=== PATIENT | male | born 1970 | race Caucasian/White ===

== ENCOUNTER 2021-04-28 13:57 | Outpatient (RCR) | payer OTHER, SELFPAY ==
--- NOTE | 2021-04-28 15:03 | OTOPEVAL ---
Thank you for referring Tanvir Burr to [facility].? The patient is scheduled to be seen for therapy? ____x/week for ___ weeks. Please review, sign, date and return this plan of care BEN. I agree with and certify that the following plan of care is medically necessary. Referring Physician Date Admitting Provider: Attending Provider: Car Moyer, Referring Provider: *OT Outpatient Evaluation Start: 04/28/21 14:04 Freq: Status: Active Protocol: Document 04/28/21 14:05 HENNY (Rec: 04/28/21 15:02 [facility] [id number]) Therapy Assessment Status Assessment Status Assessment Status Evaluation Evaluation Information Problem Diagnosis decreased ROM of R elbow Onset May 2020 Cause closed fracture of head of radius Subjective Information Patient reports that he had Query Text:As Reported By Patient/ surgery on his R elbow on . Patient injured his R elbow in May of 2020 when he fell at work and landed on his R elbow. Patient was off for 2 weeks after the surgery and is currently back to work on light duty. Patient reports that overall his R elbow is feeling well but he noticed it when he goes to reach as well as notices pain in the R shoulder and wrist. Patient's job requires occasional heavy lifting, pushing, pulling and reaching. Reaching up to his face is very difficult and lifting things. Patient is currently on 1# lifting restriction. Patient returns to the doctor at the beginning of May. 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
--- NOTE | 2021-04-28 17:51 | OTOPEVAL ---
Thank you for referring Tanvir Burr to [facility].? The patient is scheduled to be seen for therapy? ____x/week for ___ weeks. Please review, sign, date and return this plan of care BEN. I agree with and certify that the following plan of care is medically necessary. Referring Physician Date Admitting Provider: Attending Provider: Car Moyer, Referring Provider: *OT Outpatient Evaluation Start: 04/28/21 14:04 Freq: Status: Active Protocol: Document 04/28/21 14:05 HENNY (Rec: 04/28/21 15:02 [facility] [id number]) Therapy Assessment Status Assessment Status Assessment Status Evaluation Evaluation Information Problem Diagnosis decreased ROM of R elbow Onset May 2020 Cause closed fracture of head of radius Subjective Information Patient reports that he had Query Text:As Reported By Patient/ surgery on his R elbow on . Patient injured his R elbow in May of 2020 when he fell at work and landed on his R elbow. Patient was off for 2 weeks after the surgery and is currently back to work on light duty. Patient reports that overall his R elbow is feeling well but he noticed it when he goes to reach as well as notices pain in the R shoulder and wrist. Patient's job requires occasional heavy lifting, pushing, pulling and reaching. Reaching up to his face is very difficult and lifting things. Patient is currently on 1# lifting restriction. Patient returns to the doctor at the beginning of May. 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
--- NOTE | 2021-05-12 15:53 | OTOPEVAL ---
Thank you for referring Tanvir Burr to [facility].? The patient is scheduled to be seen for therapy? ____x/week for ___ weeks. Please review, sign, date and return this plan of care BEN. I agree with and certify that the following plan of care is medically necessary. Referring Physician Date Admitting Provider: Attending Provider: Car Moyer, Referring Provider: *OT Outpatient Evaluation Start: 04/28/21 14:04 Freq: Status: Active Protocol: Document 05/12/21 14:30 [facility] (Rec: 05/12/21 15:53 [facility] [id number]) Therapy Assessment Status Assessment Status Assessment Status Progress Evaluation Information Problem Subjective Information Patient reports no new Query Text:As Reported By Patient/ concerns. He states that Family overall his R elbow is doing well. He does mention occasional pain if he tries to bend it to far and occasional pain the R shoulder and wrist . Pain Assessment Timing of Pain Assessment Timing of Pain Assessment Pre-Treatment Self Report Self Report Pain Level 0 Pain Score Pain Score 0: Self Report Upper Extremity Range of Motion Elbow/Forearm Range of Motion Right Elbow Flexion - Active 135 Elbow Extension - Active -5 General Exercise General Exercises Side Right Exercise Description PROM for R shoulder flexion, Query Text:Record Sets, Reps, abduction, horizontal Resistance, and Position abduction, elbow flexion and extension, wrist flexion and extension with elbow extended and with elbow in flexion x 10 min AROM R tendon glides 1x10 AROM for R elbow flexion/ extension, supination/ pronation and wrist extension/ flexion 1 x 10 R elbow flexion/extension 2x20 with 1 lb weight R forearm pronation/supination 2x20 with 1 lb weight R wrist flexion/extension 2x20 with 1 lb weight Manual Therapy Manual Therapy Side Right Patient Position Sitting Treatment Comments STM/IASTM to volar elbow/ Query Text:Include Technique and forearm x 10 min Result of Technique Modalities Hot Pack/Cold Pack Right Elbow Type Hot Pack
--- NOTE | 2021-05-27 15:50 | OTOPEVAL ---
Thank you for referring Tanvir Burr to [facility].? The patient is scheduled to be seen for therapy? ____x/week for ___ weeks. Please review, sign, date and return this plan of care BEN. I agree with and certify that the following plan of care is medically necessary. Referring Physician Date Admitting Provider: Attending Provider: Car Moyer, Referring Provider: *OT Outpatient Evaluation Start: 04/28/21 14:04 Freq: Status: Active Protocol: Document 05/27/21 14:42 [facility] (Rec: 05/27/21 15:49 [id number]) Therapy Assessment Status Assessment Status Assessment Status Re-evaluation Evaluation Information Problem Subjective Information Patient reports that overall Query Text:As Reported By Patient/ things are going well. He Family mentions that occasionally his R shoulder bothers him as well as tenderness at the location of where his stitches were. Patient reports that he continues to be on a 1# lifting restriction and returns to the doctor at the beginning of June. Per doctor's order patient is able to begin light progressive strengthening at 12 weeks post -op which is May 28, 2021 . Pain Assessment Timing of Pain Assessment Timing of Pain Assessment Re-assessment Self Report Self Report Pain Level 0 Pain Score Pain Score 0: Self Report Upper Extremity Range of Motion Elbow/Forearm Range of Motion Right Elbow Flexion - Active 135 Elbow Extension - Active -5 General Exercise General Exercises Side Right Exercise Description PROM for R shoulder flexion, Query Text:Record Sets, Reps, abduction, horizontal Resistance, and Position abduction, elbow flexion and extension, wrist flexion and extension with elbow extended and with elbow in flexion x 15 min Arm pulleys x 5 min in order to facilitate R shoulder flexion and extension extension AROM R tendon glides 1x10 AROM for R elbow flexion/ extension, supination/ pronation and wrist extension/ flexion 1 x 1
== END 2021-05-27 18:00 | disposition still patient (30) ==
LOC: CHSOT 13:57
PROVIDERS: Visit Provider Orthopaedic Surgery Hand Surgery
DX: S52.121D Displaced fracture of head of right radius, subsequent encounter for closed fracture with routine healing (principal)
CPT/HCPCS: 97110; 97140; 97165

== ENCOUNTER 2021-07-28 16:26 | Outpatient (RCR) | payer OTHER, SELFPAY ==
--- NOTE | 2021-07-28 17:19 | OTOPEVAL ---
Thank you for referring Tanvir Burr to [facility].? The patient is scheduled to be seen for therapy? ____x/week for ___ weeks. Please review, sign, date and return this plan of care BEN. I agree with and certify that the following plan of care is medically necessary. Referring Physician Date Admitting Provider: Attending Provider: Car Moyer, Referring Provider: *OT Outpatient Evaluation Start: 07/28/21 15:58 Freq: Status: Active Protocol: Document 07/28/21 15:58 [facility] [place] [facility] (Rec: 07/28/21 17:19 [facility] [id number]) Therapy Assessment Status Assessment Status Assessment Status Discharge Evaluation Information Problem Subjective Information Patient reports that he is Query Text:As Reported By Patient/ unsure of what happened Family however patient was not approved for additional visits so has not been seen since . Patient was recently cleared by the doctor and back to full duty at work. Patient states that some of the things he does he can feel it but overall not bad. Patient is doing well with completing day to day activities. No new concerns. Patient reports that throwing with his R hand is very awkward. Pain Assessment Timing of Pain Assessment Timing of Pain Assessment Re-assessment Self Report Self Report Pain Level 0 Pain Score Pain Score 0: Self Report Upper Extremity Range of Motion General Upper Extremity Range of Motion Reason Not Measured WNL/Left,WNL/Right Elbow/Forearm Range of Motion Right Elbow Flexion - Active 140 Elbow Extension - Active -10 Elbow/Forearm Range of Motion Comments Supination/pronation is WNLL Upper Extremity Muscle Strength Testing General Upper Extremity Strength Reason Not Measured WNL/Left,WNL/Right Gross Upper Extremity Strength Comments 5/5 Hand Speech Pathologist Assistant/Pinch Strength Assessment Hand Left Speech Pathologist Assistant Strength (lbs) 118 Right Speech Pathologist Assistant Strength (lbs) 97 General Exercise General Exercises Side Right Exercise Description green theratube resisting D-2 Query Text:Record Sets, Reps, flexion, external rotation in Resistance, and Position neutral and external rotation in 90 degrees, 20 reps x 1 set each Rehab Teaching Rehab Teaching Teaching Topic Rehab Teaching Readiness to Learn
== END 2021-07-28 17:26 | disposition home or self-care (01) ==
LOC: CHSOT 16:26
PROVIDERS: Visit Provider Orthopaedic Surgery Hand Surgery
DX: S52.121D Displaced fracture of head of right radius, subsequent encounter for closed fracture with routine healing (principal); M25.521 Pain in right elbow
CPT/HCPCS: 97110

== ENCOUNTER 2023-06-11 19:52 | Outpatient (CLI) | payer OTHER, SELFPAY ==
--- NOTE | 2023-06-30 17:56 | WPDSLEEPSTUD ---
Sleep Study Date of Study: 06/11/23 Ordering Provider: Boogie Lilly DO Interpreting Physician: Hope Villagomez DO Sleep Study Type: Split Polysomnogram Height: 1.75 m Weight: 102.058 kg Body Mass Index: 33.2 Neck Circumference (inches): 18 [place]: 3 Reason for Sleep Study 11/11/2008- PSG showed overall AHI of 26.9 with desaturation down to 89% 12/02/2008: PAP Titration showed optimal pressure of CPAP 8 cm H2O The patient is using a CPAP machine that is 10+ years old. Daytime hypersomnia despite using CPAP. Sleep History The patient is a 52-year-old male with anxiety, depression, GERD, hyperlipidemia, obesity and previously diagnosed sleep apnea that had a sleep study ordered by his primary care physician to optimize his CPAP therapy. The patient rarely awakens from sleep short of breath. He denies awakening at night with heartburn, belching or cough. He frequently snores and is frequently loud enough that others complain. He rarely has trouble sleeping when he has a cold. He rarely wakes up gasping for air throughout the night. He rarely has breathing problems at night observed by himself or others. He occasionally sweats excessively at night. He rarely has heart palpitations or irregular heartbeats during the night. He occasionally falls asleep during the day but never while driving. He denies sleep paralysis and cataplexy. He rarely has trouble at school or work due to sleepiness. He frequently experiences vivid dreamlike scenes upon awakening or falling asleep. He rarely feels afraid of going to sleep. He denies having nightmares. He frequently remembers his dreams. He constantly has thoughts racing through his mind. He frequently feels sad, depressed and anxious. He frequently has muscular tension. He rarely notices parts of his body jerk. He occasionally has crawling and aching feelings in his legs and occasionally has leg pain during the night. He denies grinding his teeth during sleep and denies awakening with morning jaw pain. He is frequently bothered by pain during the day and occasionally awakened by pain during the night. He constantly wakes up feeling stiff in the morning. He frequently wakes up with sore or achy muscles. He frequently wakes up with pain in the neck, spine and other joints. He goes to bed at 9:00 p.m. on weekdays and between 10:00 p.m. to midnight on the weekends. It takes him about 20 minutes to fall asleep. He wakes sometimes 9 are sometimes several times per night for unknown reasons but is able to fall back asleep within 5 minutes. He wakes up at 4:50 a.m. on weekdays between 9-10 a.m. on the weekends. He typically gets 7-1/2 hours of sleep per day. He does not stay in bed after waking up in the morning on weekdays. He currently lives with his . He denies consuming any caffeinated beverages within 2 hours of bedtime. He denies engaging in physical exercise before bedtime. He will watch television before falling asleep. He denies taking naps in the afternoon or the evening. He consumes 2 caffeinated beverages per day. He denies tobacco, alcohol and recreational drug use. [facility] Social History Social History Smoking status: Never smoker Tobacco type: smokeless tobacco Smokeless tobacco user: chewing tobacco Additional smoking assessment comments: Chew 15 years Alcohol intake: current Alcohol use details: social Substance use: never Substance use type: does not use Do You Feel Safe in your Home?: No Lack of Transportation: No Lack of Food: Never True Current Housing: I Have Housing Concerned About Future Housing: No Difficulty Paying Gas/Electric Bills: No Difficulty Paying for Meds: No Currently Unemployed: No Education: High School Diploma/GED Difficulty w/ Childcare or Family Care: No Spiritual care concerns: No Medications Home Medications Medication Instruction
[2023-06-30 18:05] VITALS: BMI 33.2
== END 2023-06-12 06:34 | disposition home or self-care (01) ==
LOC: CHSCSM 19:53
PROVIDERS: PCP Family Medicine; Visit Provider Family Medicine
DX: G47.33 Obstructive sleep apnea (adult) (pediatric) (principal)
CPT/HCPCS: 95811

== ENCOUNTER 2023-07-02 00:26 | Day surgery (SDC) | payer OTHER, SELFPAY ==
[2023-06-25 11:00] VITALS: BMI 32.5
--- NOTE | 2023-06-30 10:05 | SUR.PREOP ---
Patient called regarding upcoming procedure. Voicemail left regarding appointment times.
[2023-07-02 07:42] VITALS: BP 132/89; PULSE 80; RESP 16; TEMP 35.9; O2SAT 100; BMI 32.3
[2023-07-02] MEDS: LACTATED RINGERS 1,000 ML 150 ML IV CONT (07:58)
--- NOTE | 2023-07-02 08:27 | WPDANESEPPF ---
Anes - Initial Pre Proc Eval Procedure: Operation Date: 07/02/23 09:00 Proposed Procedures p Screening Colonoscopy - Trevor Kothari MD Date/Time: 07/02/23 08:27 Surgeon: Trevor Kothari MD Pre Op Diagnosis: neoplasm screening Patient Data Age: 52 Gender: M Height: 1.75 m Weight: 99.3 kg Last Vital Signs Temp 96.6 F L 07/02/23 07:42 Pulse 80 07/02/23 07:42 Resp 16 07/02/23 07:42 BP 132/89 07/02/23 07:42 Pulse Ox 100 07/02/23 07:42 O2 Del Method Room Air 07/02/23 07:42 Allergies Allergy/AdvReac Type Severity Reaction Status Date / Time No Known Allergies Allergy Verified 07/02/23 07:47 Home Medications Medication Instructions Recorded Confirmed Type atorvastatin 20 mg tablet 20 mg PO DAILY #90 tabs 05/11/23 07/02/23 Rx venlafaxine 75 mg capsule,extended 75 mg PO DAILY 05/11/23 07/02/23 History release 24 hr bupropion HCl 300 mg 24 hr tablet, 300 mg PO QAM 06/25/23 07/02/23 History extended release glucosamine-chondroitin 250 mg-200 2 tablet PO TID 06/25/23 07/02/23 History mg tablet (Osteo Bi-Flex) omeprazole 20 mg capsule,delayed 20 mg PO DAILY 06/25/23 07/02/23 History release CPAP #1 ea 07/01/23 07/02/23 Rx Patient hx anesthesia problems: none Family hx anesthesia problems: none Results Review: All pre-operative results and documents have been reviewed as part of the pre-operative evaluation. [facility] Social History Social History Smoking status: Never smoker Tobacco type: smokeless tobacco Smokeless tobacco user: chewing tobacco Additional smoking assessment comments: Chew 15 years Alcohol intake: current Alcohol use details: social Substance use: never Substance use type: does not use Do You Feel Safe in your Home?: No Lack of Transportation: No Lack of Food: Never True Current Housing: I Have Housing Concerned About Future Housing: No Difficulty Paying Gas/Electric Bills: No Difficulty Paying for Meds: No Currently Unemployed: No Education: High School Diploma/GED Difficulty w/ Childcare or Family Care: No Spiritual care concerns: No Anes - Eval Final PreProcedure Day of Procedure 07/02/23 08:27 Patient weight: obese Heart: regular rate and rhythm Lungs: clear to auscultation Airway: Mallampati scale class II Neurological: alert and oriented Last oral intake: >/= 8 hours ASA classification: III Emergent: no Anesthetic plan: proceed Anesthesia type and monitoring: general GIVS and standard monitoring Results Review: All pre-operative results and documents have been reviewed as part of the pre-operative evaluation. Informed Consent: The patient's anesthetic plan and its attendant risks and benefits were discussed with the patient/family/POA. Questions were solicited and answers provided to the satisfaction of the patient/family/POA.
--- NOTE | 2023-07-02 08:33 | PM.HPGS ---
History of Present Illness History of Present Illness Consent: Risks, benefits, and alternatives have been discussed and questions answered. Patient agrees to proceed with procedure. Chief complaint: neoplasm screening Narrative: Tanvir Burr is a 52 year old male here for screening colonoscopy, had one about 20 years ago Review of Systems Review of Systems: All systems reviewed & are unremarkable except as noted in HPI and below PMFSH Past Medical History Medical History (Updated 07/02/23 @ 08:33 by Trevor Kothari MD) Colon cancer screening Social History Social History Smoking status: Never smoker Tobacco type: smokeless tobacco Smokeless tobacco user: chewing tobacco Additional smoking assessment comments: Chew 15 years Alcohol intake: current Alcohol use details: social Substance use: never Substance use type: does not use Do You Feel Safe in your Home?: No Lack of Transportation: No Lack of Food: Never True Current Housing: I Have Housing Concerned About Future Housing: No Difficulty Paying Gas/Electric Bills: No Difficulty Paying for Meds: No Currently Unemployed: No Education: High School Diploma/GED Difficulty w/ Childcare or Family Care: No Spiritual care concerns: No Meds Home Medications and Allergies Home Medications Medication Instructions Recorded Confirmed Type atorvastatin 20 mg tablet 20 mg PO DAILY #90 tabs 05/11/23 07/02/23 Rx venlafaxine 75 mg capsule,extended 75 mg PO DAILY 05/11/23 07/02/23 History release 24 hr bupropion HCl 300 mg 24 hr tablet, 300 mg PO QAM 06/25/23 07/02/23 History extended release glucosamine-chondroitin 250 mg-200 2 tablet PO TID 06/25/23 07/02/23 History mg tablet (Osteo Bi-Flex) omeprazole 20 mg capsule,delayed 20 mg PO DAILY 06/25/23 07/02/23 History release CPAP #1 ea 07/01/23 07/02/23 Rx Allergies Allergy/AdvReac Type Severity Reaction Status Date / Time No Known Allergies Allergy Verified 07/02/23 07:47 Vital Signs Vital Signs - 24 hr 07/02/23 07:42 Temperature 96.6 F L Pulse Rate 80 Respiratory Rate 16 Blood Pressure 132/89 Pulse Oximetry 100 Oxygen Delivery Room Air Exam Const: General: comfortable and no acute distress HENMT: Face/Nose/Sinus: Normal nares present Eyes: General: appearance normal, both eyes and all related structures Neck: Neck: no JVD Resp: Auscultation: clear to auscultation bilaterally Cardio: Rate: regular rate Rhythm: regular rhythm GI: Inspection: non-distended GI Palp: Yes Soft to palpation Skin: General skin exam: normal color Neuro: General: gait normal Speech: normal speech Extrem: General: normal to inspection Psych: Mental Status: mental status grossly normal Assessment and Plan Assessment and plan (1) Colon cancer screening: Code(s): Z12.11 - Encounter for screening for malignant neoplasm of colon Status: Acute Assessment and Plan: colonoscopy
[2023-07-02 08:59] VITALS: BP 119/72; PULSE 77; RESP 21; O2SAT 94
[2023-07-02 09:09] VITALS: BP 122/73; PULSE 69; RESP 20; O2SAT 96
[2023-07-02 09:19] VITALS: BP 126/85; PULSE 68; RESP 23; O2SAT 97
== END 2023-07-02 09:23 | disposition home or self-care (01) ==
PROVIDERS: PCP Family Medicine; Visit Provider Internal Medicine Gastroenterology
PROC: 0DJD8ZZ Inspection of Lower Intestinal Tract, Via Natural or Artificial Opening Endoscopic (ICD-10-PCS; CPT 45378; principal; 2023-07-02 09:00)
DX: Z12.11 Encounter for screening for malignant neoplasm of colon (principal); K57.30 Diverticulosis of large intestine without perforation or abscess without bleeding; F17.220 Nicotine dependence, chewing tobacco, uncomplicated; E66.9 Obesity, unspecified; Z68.32 Body mass index [BMI] 32.0-32.9, adult
CPT/HCPCS: 45378; J2704; J7120

== ENCOUNTER 2024-03-02 01:10 | Day surgery (SDC) | payer OTHER, SELFPAY ==
[2024-02-22 12:05] VITALS: BMI 34.0
--- NOTE | 2024-03-02 10:13 | PM.IMHP ---
H&P: HPI History of Present Illness Date/Time: 03/02/24 10:13 Chief Complaint: Dysphagia Narrative: this patient has been complaining of dysphagia to solids and liquids occasionally for several years. He denies heartburn, vomiting, regurgitation or early satiety. He states that he has difficulty swallowing solids and liquids is indistinct and occurs approximately once a week. There is no unintended weight loss. Review of Systems Review of Systems: All systems reviewed & are unremarkable except as noted in HPI and below PMFSH Past Medical History Medical History Colon cancer screening Social History Social History Smoking status: Current every day smoker Tobacco type: smokeless tobacco Smokeless tobacco user: chewing tobacco Additional smoking assessment comments: Chew 15 years Alcohol intake: current Drinks per week: 3 Alcohol use details: social Substance use: never Substance use type: does not use Do You Feel Safe in your Home?: No Lack of Transportation: No Lack of Food: Never True Current Housing: I Have Housing Concerned About Future Housing: No Difficulty Paying Gas/Electric Bills: No Difficulty Paying for Meds: No Currently Unemployed: No Education: High School Diploma/GED Difficulty w/ Childcare or Family Care: No Living arrangements: with family Spiritual care concerns: No Meds Home Medications and Allergies Home Medications Medication Instructions Recorded Confirmed Type bupropion HCl 300 mg 24 hr tablet, 300 mg PO QAM 06/25/23 03/02/24 History extended release omeprazole 20 mg capsule,delayed 20 mg PO DAILY 06/25/23 03/02/24 History release CPAP pressure change #1 ea 07/26/23 02/22/24 Rx atorvastatin 20 mg tablet 20 mg PO DAILY #90 tabs 11/01/23 03/02/24 Rx sertraline 100 mg tablet 100 mg PO DAILY 02/22/24 03/02/24 History Allergies Allergy/AdvReac Type Severity Reaction Status Date / Time No Known Allergies Allergy Verified 03/02/24 10:13 Exam Const: General: cooperative and healthy appearing Resp: Effort & Inspection: normal respiratory effort and able to speak in complete sentences Auscultation: clear to auscultation bilaterally Cardio: Rate: regular rate Rhythm: regular rhythm GI: Inspection: normal to inspection GI Palp: No No hepatosplenomegaly present Auscultation: normal bowel sounds Rectal Exam: deferred Skin: General skin exam: normal color Psych: Appearance: grossly normal Mental Status: mental status grossly normal Assessment and Plan Assessment and plan (1) Dysphagia: Code(s): R13.10 - Dysphagia, unspecified Status: Acute Assessment and Plan: The patient's differential diagnosis includes eosinophilic esophagitis or Schatzki's ring. Will perform EGD and esophageal biopsies and possible dilatation if a ring is evidenced.
[2024-03-02 10:14] VITALS: BP 130/86; PULSE 67; RESP 18; TEMP 36.1; O2SAT 97; BMI 34.5
[2024-03-02] MEDS: LACTATED RINGERS 1,000 ML 150 ML IV CONT (10:21)
--- NOTE | 2024-03-02 10:21 | WPDANESEPPF ---
Anes - Initial Pre Proc Eval Procedure: Operation Date: 03/02/24 10:30 Proposed Procedures p Esophagogastroduodenoscopy - Cornel Lindo MD Date/Time: 03/02/24 10:21 Surgeon: Cornel Lindo MD Pre Op Diagnosis: Dysphagia, foreign body sensation in throat Patient Data Age: 53 Gender: M Height: 1.75 m Weight: 106.1 kg Last Vital Signs Temp 97 F L 03/02/24 10:14 Pulse 67 03/02/24 10:14 Resp 18 03/02/24 10:14 BP 130/86 03/02/24 10:14 Pulse Ox 97 03/02/24 10:14 O2 Del Method Room Air 03/02/24 10:14 Allergies Allergy/AdvReac Type Severity Reaction Status Date / Time No Known Allergies Allergy Verified 03/02/24 10:13 Home Medications Medication Instructions Recorded Confirmed Type bupropion HCl 300 mg 24 hr tablet, 300 mg PO QAM 06/25/23 03/02/24 History extended release omeprazole 20 mg capsule,delayed 20 mg PO DAILY 06/25/23 03/02/24 History release CPAP pressure change #1 ea 07/26/23 02/22/24 Rx atorvastatin 20 mg tablet 20 mg PO DAILY #90 tabs 11/01/23 03/02/24 Rx sertraline 100 mg tablet 100 mg PO DAILY 02/22/24 03/02/24 History Patient hx anesthesia problems: none Family hx anesthesia problems: none Results Review: All pre-operative results and documents have been reviewed as part of the pre-operative evaluation. [facility] Past Medical History Medical History Colon cancer screening Social History Social History Smoking status: Current every day smoker Tobacco type: smokeless tobacco Smokeless tobacco user: chewing tobacco Additional smoking assessment comments: Chew 15 years Alcohol intake: current Drinks per week: 3 Alcohol use details: social Substance use: never Substance use type: does not use Do You Feel Safe in your Home?: No Lack of Transportation: No Lack of Food: Never True Current Housing: I Have Housing Concerned About Future Housing: No Difficulty Paying Gas/Electric Bills: No Difficulty Paying for Meds: No Currently Unemployed: No Education: High School Diploma/GED Difficulty w/ Childcare or Family Care: No Living arrangements: with family Spiritual care concerns: No Anes - Eval Final PreProcedure Day of Procedure 03/02/24 10:21 Patient weight: obese Heart: regular rate and rhythm Lungs: clear to auscultation Airway: Mallampati scale Neurological: alert and oriented Last oral intake: >/= 8 hours ASA classification: III Emergent: no Anesthetic plan: proceed Anesthesia type and monitoring: general GIVS and standard monitoring Results Review: All pre-operative results and documents have been reviewed as part of the pre-operative evaluation. Hyperlipidemia, BETTY on CPAP setting 9. Pt has dysphagia. Informed Consent: The patient's anesthetic plan and its attendant risks and benefits were discussed with the patient/family/POA. Questions were solicited and answers provided to the satisfaction of the patient/family/POA.
[2024-03-02 10:42] VITALS: BP 104/68; PULSE 69; RESP 24; O2SAT 95
[2024-03-02 10:52] VITALS: BP 109/67; PULSE 68; RESP 26; O2SAT 95
[2024-03-02 11:02] VITALS: BP 116/78; PULSE 65; RESP 20; O2SAT 99
== END 2024-03-02 11:09 | disposition home or self-care (01) ==
PROVIDERS: PCP Family Medicine; Visit Provider Internal Medicine Gastroenterology
PROC: 0DJ08ZZ Inspection of Upper Intestinal Tract, Via Natural or Artificial Opening Endoscopic (ICD-10-PCS; CPT 43235; principal; 2024-03-02 10:30)
DX: K22.2 Esophageal obstruction (principal); K44.9 Diaphragmatic hernia without obstruction or gangrene; F17.220 Nicotine dependence, chewing tobacco, uncomplicated; E66.9 Obesity, unspecified; Z68.34 Body mass index [BMI] 34.0-34.9, adult
CPT/HCPCS: 43450; 43235; J2003; J2704; J7120

== ENCOUNTER 2024-03-13 15:29 | Outpatient (RCR) | payer OTHER, SELFPAY ==
--- NOTE | 2024-03-13 16:16 | PTOPEVAL1 ---
Assessment and note entered by Tien Guillen Evaluation Information Assessment Status Evaluation ICD-10 Condition Codes (PT) Pain in low back M54.50 Onset 03/02/24 Subjective Information Pt. reports that he has had years of back pain. He states that he has started noticing pain with getting out of bed or getting out of his car. he states that he cannot bend for long periods with pain. Pt. reports that he was told to not bend backwards when stretching. He states that he has no trouble with sleeping at night. 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 He states that he notices little pain with walking and states that lifting and bending forward increases his pain. He reports that his goal is to reduce his low back pain. Reported Pain Level Pain Score 0: Self Report Assessment PT Clinical Summary Pt. is a 53 year old male who enters the clinic with low back pain. He presents with impaired posture, impaired flexibility, impaired strength and pain on this date. Continued skilled PT is indicated in order to improve these areas to allow the pt. to be able to complete all IADL's with improved comfort and efficiency. Plan of Care Interventions Electrical Stimulation,Hot Pack/Cold Pack,Manual Therapy,Mechanical Traction,Neuro Re-education, Patient/Caregiver Educati,Therapeutic Activities, Therapeutic Exercise PT Services Indicated Yes Treatment Frequency and 2x/week x 8 visits Duration These treatments will address the objective and functional deficits as defined above. The patient will be advanced safely and appropriately in order for the patient to progress towards his/her prior level of function. Additional exercises will be introduced and as well as a comprehensive home exercise program upon discharge, if needed, ?to ensure carryover of functional gains achieved in the clinic. This treatment plan has been reviewed and agreement upon by the patient.
--- NOTE | 2024-03-13 16:19 | OPREHPOC ---
Outpatient Therapy Plan of Care This is a Multidisciplinary Plan of Care that may contain components documented by all disciplines (PT, OT, and ST.) PT Problem 1 PT Problem #1 Knowledge Deficit PT Goal 1 Goal / Goal Update Pt. will be independent with a HEP addressing trunk mobility and core strength. Target Visit 2 PT Problem 2 PT Problem #2 Pain PT Goal 1 Goal / Goal Update Pt. will reduce pain level to 2/10 at worst with long periods of standing. Target Visit 10 PT Problem 3 PT Problem #3 Impaired Strength PT Goal 1 Goal / Goal Update Pt. will present with good abdominal strength with Lupillo method at the lower and oblique abdominals Pt. will present with 5/5 lower abdominal strength . Target Visit 8 PT Problem 4 PT Problem #4 Impaired Functional Mobil PT Goal 1 Goal / Goal Update Pt. will present with less than 10% limitation on the Oswestry indicating significant functional improvement. Target Visit 8
--- NOTE | 2024-04-03 08:13 | PCPTNOTE ---
Pt. did not show for his scheduled 0800 appointment. Left a voicemail with the pt. to contact the clinic regarding his status.
--- NOTE | 2024-04-06 08:31 | PCPTNOTE ---
Mr. Burr has not shown for his last 2 treatment sessions. He has attended a total of 6 sessions with no complaints of pain during his last session. He will be discharged from our care at this time.
== END 2024-03-31 11:45 | disposition home or self-care (01) ==
LOC: CHSPT 15:29
PROVIDERS: Visit Provider Family Medicine
DX: M54.50 Low back pain, unspecified (principal)
CPT/HCPCS: 97014; 97110; 97150; 97161; 97530; G0283